=== PATIENT | male | born 1960 | race African-American/Black ===

== ENCOUNTER 2018-04-28 11:15 | Inpatient (IN) | payer MEDICARE, MEDICAID ==
[~2018-04-28] VITALS: Ht 182.9 cm; Wt 291.8 kg
[2018-04-28] MEDS: IPRATROPIUM/ALBUTEROL 0.5-3(2.5)MG/3ML NEB INH SCH ×2 (09:01→23:30)
[~2018-04-28 11:15] MED LIST: ASPI-986 PO
[2018-04-28] MEDS ORDERED: KETOROLAC 30MG/ML VIAL IV ONE (12:15)
[2018-04-28] MEDS ORDERED: DILTIAZEM HCL 5MG/ML 5ML VIAL IV ONE (13:30)
[2018-04-28] MEDS ORDERED: ASPIRIN 325MG TABLET PO ONE (13:30)
[2018-04-28] MEDS ORDERED: SODIUM CHLORIDE 0.9% 500 ML IV ONE (13:30)
[2018-04-28] MEDS ORDERED: DILTIAZEM HCL 125 MG in DEXT 5% WATER 100 ML IV ONE ×2 (13:30→14:00)
[2018-04-28 14:03] LABS: HEMATOCRIT. 42.2 % (42.0-52.0); HEMOGLOBIN. 13.7 g/dL (14.0-18.0); MEAN CORPUSCULAR VOLUME 92.3 fL (80.0-94.0); MEAN PLATELET VOLUME 10.7 fl (7.4-10.4); PLATELET 156 x1000/uL (130-400); RED BLOOD CELL COUNT 4.57 mill/uL (4.7-6.1); RED CELL DISTRIBUTION WIDTH 17.5 % (11.6-14.6)
[2018-04-28 14:06] LABS: CHLORIDE 102 mEq/L (98-107)
[2018-04-28 14:29] LABS: NUCLEATED RED BLOOD CELLS 1 /100 WBC
[2018-04-28 14:30] LABS: PLATELET ESTIMATE NORMAL
[2018-04-28] MEDS ORDERED: METOPROLOL TARTRATE 5MG/5ML VIAL IV SCH (14:45)
[2018-04-28] MEDS ORDERED: DILTIAZEM HCL 5MG/ML 5ML VIAL IV NR (16:19)
[2018-04-28 17:05] LABS: BG BASE EXCESS -4.8 mmol/L (-2.0-2.0); BG BILEVEL POS AIRWAY PRESSURE 15/5; BG DEOXYHEMOGLOBIN 3.9 % (0.0-5.0); BG HCO3 ACT 19.1 mmol/L (22.0-26.0); BG METHEMOGLOBIN 0.3 % (0.0-1.5); BG OXYHEMOGLOBIN 94.8 % (94.0-97.0); BG PH 7.394 (7.350-7.450); BG PO2 88.7 mmHg (75.0-100.0); BG SAMPLE SITE RIGHT RADIAL; BG TOTAL HEMOGLOBIN 13.4 g/dL (12.0-18.0); BG VENT MODE MASK - BIPAP; BG VENT RATE 14 set
[2018-04-28] MEDS ORDERED: PIPERACILLIN/TAZ 2.25G PREMIX 50 ML IV NR (17:31)
[2018-04-28] MEDS ORDERED: HYDROCODONE/ACETAMINOPHEN 5/325MG TABLET PO ONE (17:45)
[2018-04-28] MEDS ORDERED: FENTANYL CITRATE/PF 50MCG/ML 2ML VIAL IV ONE (17:45)
[2018-04-28 18:01] LABS: D-DIMER 10.67 mg/L FEU (<0.50); PROTHROMBIN TIME 20.3 sec (9.1-11.1)
[2018-04-28] MEDS ORDERED: GUAIFENESIN 200MG/10ML SUGAR FREE UDC PO PRN (19:00)
[2018-04-28] MEDS ORDERED: IPRATROPIUM/ALBUTEROL 0.5-3(2.5)MG/3ML NEB INH PRN (19:00)
[2018-04-28] MEDS ORDERED: ACETAMINOPHEN 650MG SUPP PR PRN (19:00)
[2018-04-28] MEDS ORDERED: MAGNESIUM/ALUMINUM HYDROXIDE/SIMETHICONE 30ML UDC PO PRN (19:00)
[2018-04-28] MEDS ORDERED: CLONIDINE 0.1MG TABLET PO PRN (19:00)
[2018-04-28] MEDS ORDERED: NA PHOS,M-B/NA PHOS,DI-BA ENEMA 118ML PR PRN (19:00)
[2018-04-28] MEDS ORDERED: ACETAMINOPHEN 325MG TABLET PO PRN (19:00)
[2018-04-28] MEDS ORDERED: DIPHENHYDRAMINE 50MG/ML VIAL IV PRN (19:00)
[2018-04-28] MEDS: HYDROCODONE/ACETAMINOPHEN 5/325MG TABLET PO PRN (22:35)
[2018-04-28] MEDS: LORAZEPAM 0.5MG TABLET PO PRN (22:35)
[2018-04-29] VITALS (9 sets, daily range): BP systolic 84–143; BP diastolic 57–87
[2018-04-29 01:37] LABS: CREATINE KINASE MB FRACTION 21.4 ng/mL (0.5-3.6)
[2018-04-29] MEDS ORDERED: VANCOMYCIN 2,000 MG in DEXT 5% WATER 500 ML IV NR (02:30)
[2018-04-29] MEDS: DILTIAZEM HCL 60MG TABLET PO SCH ×3 (06:00→22:43)
[2018-04-29] MEDS ORDERED: DIGOXIN 500MCG/2ML AMP IV NR (06:00)
[2018-04-29] MEDS ORDERED: PIPERACILLIN/TAZ 2.25G PREMIX 50 ML IV SCH (08:00)
[2018-04-29 08:42] LABS: BG BASE EXCESS -5.4 mmol/L (-2.0-2.0); BG BILEVEL POS AIRWAY PRESSURE 15/5; BG DEOXYHEMOGLOBIN 1.1 % (0.0-5.0); BG FRACTION INSPIRED OXYGEN 30; BG HCO3 ACT 19.1 mmol/L (22.0-26.0); BG METHEMOGLOBIN 0.2 % (0.0-1.5); BG OXYGEN SATURATION 98.9 % (92.0-98.5); BG OXYHEMOGLOBIN 97.7 % (94.0-97.0); BG PCO2 33.8 mmHg (35.0-45.0); BG PH 7.369 (7.350-7.450); BG SAMPLE SITE RIGHT BRACHIAL; BG TOTAL HEMOGLOBIN 12.8 g/dL (12.0-18.0); BG VENT MODE MASK - BIPAP; BG VENT RATE 14 set
[2018-04-29] MEDS: IPRATROPIUM/ALBUTEROL 0.5-3(2.5)MG/3ML NEB INH SCH ×4 (09:01→20:38)
[2018-04-29 10:15] LABS: CLARITY URINE CLOUDY (CLEAR); COLOR URINE DARK YELLOW (YELLOW); KETONES URINE TRACE (NEGATIVE); LEUKOCYTE ESTERASE URINE 2+ (NEGATIVE); NITRITE URINE POSITIVE (NEGATIVE); OCCULT BLOOD URINE 1+ (NEGATIVE); PROTEIN URINE 3+ (NEGATIVE); SPECIFIC GRAVITY URINE 1.019 (1.005-1.030)
[2018-04-29 10:31] LABS: *AMPHETAMINES SCREEN URINE NEGATIVE (NEGATIVE); *BARBITURATES SCREEN URINE NEGATIVE (NEGATIVE); *BENZODIAZEPINES SCREEN URINE NEGATIVE (NEGATIVE); *COCAINE SCREEN URINE NEGATIVE (NEGATIVE); METHADONE URINE SCREEN NEGATIVE (NEGATIVE); OPIATES URINE SCREEN NEGATIVE (NEGATIVE)
[2018-04-29 10:32] LABS: CANNABINOID URINE SCREEN NEGATIVE (NEGATIVE); PHENCYCLIDINE URINE SCREEN NEGATIVE (NEGATIVE)
[2018-04-29] MEDS ORDERED: DILTIAZEM HCL 125 MG in DEXT 5% WATER 100 ML IV PRN (10:45)
[2018-04-29] MEDS: ASPIRIN 81MG EC TABLET PO SCH (11:27)
[2018-04-29] MEDS: PIPERACILLIN/TAZ 3.375G PREMIX 50 ML IV SCH ×3 (11:27→20:12)
[2018-04-29] MEDS: PANTOPRAZOLE SODIUM 40 MG/VIAL IV SCH (11:27)
[2018-04-29] MEDS: FUROSEMIDE 40MG/4ML VIAL IVP SCH (11:29)
[2018-04-29] MEDS ORDERED: LIDOCAINE HCL 1% 20ML VIAL (Pyxis) INJ ONE (12:48)
[2018-04-29] MEDS: ENOXAPARIN 150MG/ML SYR SUBCUT SCH (13:16)
[2018-04-29] MEDS: DEXT 5%/0.45% NACL 1000ML 1,000 ML IV SCH (19:15)
[2018-04-29 20:33] LABS: HEMATOCRIT. 36.5 % (42.0-52.0); HEMOGLOBIN. 11.9 g/dL (14.0-18.0); MEAN CORPUSCULAR HEMOGLOBIN 29.9 pg (28.0-32.0); MEAN CORPUSCULAR VOLUME 91.7 fL (80.0-94.0); MEAN PLATELET VOLUME 9.7 fl (7.4-10.4); PLATELET 102 x1000/uL (130-400); RED BLOOD CELL COUNT 3.98 mill/uL (4.7-6.1); RED CELL DISTRIBUTION WIDTH 17.4 % (11.6-14.6)
[2018-04-29 20:40] LABS: INR 1.8
[2018-04-29 20:48] LABS: CHLORIDE 104 mEq/L (98-107)
[2018-04-29 20:56] LABS: LDL CHOLESTEROL 38 mg/dL (5-100)
[2018-04-29 20:57] LABS: CREATINE KINASE 126 IU/L (39-308); CREATINE KINASE MB FRACTION 16.7 ng/mL (0.5-3.6); HDL CHOLESTEROL 6 mg/dL (40-59); T4 FREE 0.73 ng/dL (0.76-1.46)
[2018-04-29 21:16] LABS: HEPATITIS B SURFACE ANTIGEN NEGATIVE
[2018-04-29 21:20] LABS: PLATELET ESTIMATE DECREASED
[2018-04-29 21:45] LABS: HEPATITIS A AB IGM NEGATIVE (NEGATIVE)
[2018-04-29] MEDS ORDERED: VANCOMYCIN 2,000 MG in DEXT 5% WATER 500 ML IV SCH (22:00)
[2018-04-30] VITALS (10 sets, daily range): BP systolic 90–123; BP diastolic 38–78
[2018-04-30] MEDS: DEXT 5%/0.45% NACL 1000ML 1,000 ML IV SCH (00:11)
[2018-04-30] MEDS: IPRATROPIUM/ALBUTEROL 0.5-3(2.5)MG/3ML NEB INH SCH ×6 (00:30→20:48)
[2018-04-30] MEDS: ENOXAPARIN 150MG/ML SYR SUBCUT SCH ×2 (00:36→12:48)
[2018-04-30] MEDS: PIPERACILLIN/TAZ 3.375G PREMIX 50 ML IV SCH ×3 (05:28→14:31)
[2018-04-30] MEDS: DILTIAZEM HCL 60MG TABLET PO SCH ×3 (05:29→22:50)
[2018-04-30 07:12] LABS: INR 1.7; PROTHROMBIN TIME 17.4 sec (9.1-11.1)
[2018-04-30 07:22] LABS: BASOPHILS % 0.1 % (0.0-2.0); EOSINOPHILS % 0.3 % (0.0-5.0); HEMATOCRIT. 35.2 % (42.0-52.0); HEMOGLOBIN. 11.5 g/dL (14.0-18.0); LYMPHOCYTES % 12.4 % (20.0-50.0); MEAN CORPUSCULAR HEMOGLOBIN 29.9 pg (28.0-32.0); MEAN CORPUSCULAR VOLUME 91.6 fL (80.0-94.0); MEAN PLATELET VOLUME 9.8 fl (7.4-10.4); MONOCYTES % 8.6 % (2.0-8.0); NEUTROPHILS % 78.6 % (40.0-76.0); PLATELET 91 x1000/uL (130-400); RED BLOOD CELL COUNT 3.84 mill/uL (4.7-6.1); RED CELL DISTRIBUTION WIDTH 17.1 % (11.6-14.6)
[2018-04-30] MEDS: FUROSEMIDE 40MG/4ML VIAL IVP SCH (08:35)
[2018-04-30] MEDS: ASPIRIN 81MG EC TABLET PO SCH (08:35)
[2018-04-30] MEDS: PANTOPRAZOLE SODIUM 40 MG/VIAL IV SCH (08:35)
[2018-04-30 09:29] LABS: BG BASE EXCESS -4.8 mmol/L (-2.0-2.0); BG CARBOXYHEMOGLOBIN 0.8 % (0.5-1.5); BG FRACTION INSPIRED OXYGEN 32; BG HCO3 ACT 18.8 mmol/L (22.0-26.0); BG METHEMOGLOBIN 0.1 % (0.0-1.5); BG OXYHEMOGLOBIN 98.1 % (94.0-97.0); BG PCO2 30.5 mmHg (35.0-45.0); BG PH 7.408 (7.350-7.450); BG PO2 148.3 mmHg (75.0-100.0); BG SAMPLE SITE LEFT BRACHIAL; BG TOTAL HEMOGLOBIN 12.3 g/dL (12.0-18.0); BG VENT MODE NASAL CANNULA
[2018-04-30] MEDS ORDERED: ALBUMIN HUMAN 25GM/100ML (25%) IV NR (14:15)
[2018-04-30] MEDS: HYDROCODONE/ACETAMINOPHEN 5/325MG TABLET PO PRN (14:31)
[2018-04-30] MEDS: NYSTATIN POWDER 15GM TOP SCH ×2 (16:18→18:01)
[2018-04-30] MEDS ORDERED: CEFTRIAXONE 1 G PREMIX 50 ML IV SCH (17:00)
[2018-04-30] MEDS: METRONIDAZOLE 500MG TABLET PO SCH ×2 (18:00→22:46)
[2018-04-30] MEDS: CEFTRIAXONE 1 G PREMIX 50 ML IV SCH (22:46)
[2018-05-01] VITALS (9 sets, daily range): BP systolic 104–147; BP diastolic 51–90
[2018-05-01] MEDS: ENOXAPARIN 150MG/ML SYR SUBCUT SCH ×2 (00:27→11:42)
[2018-05-01] MEDS: IPRATROPIUM/ALBUTEROL 0.5-3(2.5)MG/3ML NEB INH SCH ×6 (00:47→20:31)
[2018-05-01] MEDS: DILTIAZEM HCL 60MG TABLET PO SCH ×3 (06:35→23:13)
[2018-05-01] MEDS: DOCUSATE SODIUM 100MG CAPSULE PO PRN ×2 (06:36→23:12)
[2018-05-01] MEDS: LORAZEPAM 0.5MG TABLET PO PRN (06:37)
[2018-05-01 07:16] LABS: BASOPHILS % 0.1 % (0.0-2.0); EOSINOPHILS % 0.7 % (0.0-5.0); HEMATOCRIT. 35.6 % (42.0-52.0); HEMOGLOBIN. 11.8 g/dL (14.0-18.0); LYMPHOCYTES % 16.6 % (20.0-50.0); MEAN CORPUSCULAR HEMOGLOBIN 29.9 pg (28.0-32.0); MEAN CORPUSCULAR VOLUME 90.3 fL (80.0-94.0); MEAN PLATELET VOLUME 10.4 fl (7.4-10.4); MONOCYTES % 13.3 % (2.0-8.0); NEUTROPHILS % 69.3 % (40.0-76.0); PLATELET 93 x1000/uL (130-400); RED BLOOD CELL COUNT 3.95 mill/uL (4.7-6.1); RED CELL DISTRIBUTION WIDTH 16.9 % (11.6-14.6)
[2018-05-01 08:48] LABS: D-DIMER 6.1 mg/L FEU (<0.50)
[2018-05-01] MEDS: PANTOPRAZOLE SODIUM 40 MG/VIAL IV SCH (08:55)
[2018-05-01] MEDS: ASPIRIN 81MG EC TABLET PO SCH (08:55)
[2018-05-01] MEDS: METRONIDAZOLE 500MG TABLET PO SCH ×2 (08:55→23:12)
[2018-05-01] MEDS: FUROSEMIDE 40MG/4ML VIAL IVP SCH (08:55)
[2018-05-01] MEDS: NYSTATIN POWDER 15GM TOP SCH ×3 (08:56→17:11)
[2018-05-01] MEDS: HYDROCODONE/ACETAMINOPHEN 5/325MG TABLET PO PRN ×2 (11:42→18:49)
[2018-05-01 16:53] LABS: INR 1.6
[2018-05-01] MEDS: CEFTRIAXONE 1 G PREMIX 50 ML IV SCH (23:12)
[2018-05-02] VITALS (14 sets, daily range): BP systolic 107–166; BP diastolic 60–92
[2018-05-02] MEDS: ENOXAPARIN 150MG/ML SYR SUBCUT SCH ×2 (00:10→11:26)
[2018-05-02] MEDS: IPRATROPIUM/ALBUTEROL 0.5-3(2.5)MG/3ML NEB INH SCH ×6 (00:39→20:57)
[2018-05-02] MEDS: DILTIAZEM HCL 60MG TABLET PO SCH (07:19)
[2018-05-02] MEDS: METRONIDAZOLE 500MG TABLET PO SCH ×2 (08:52→22:57)
[2018-05-02] MEDS: PANTOPRAZOLE SODIUM 40 MG/VIAL IV SCH (08:53)
[2018-05-02] MEDS: NYSTATIN POWDER 15GM TOP SCH ×3 (08:53→17:09)
[2018-05-02] MEDS: FUROSEMIDE 40MG/4ML VIAL IVP SCH (08:53)
[2018-05-02 09:35] LABS: HEMOGLOBIN. 11.8 g/dL (14.0-18.0); MEAN CORPUSCULAR HEMOGLOBIN 29.7 pg (28.0-32.0); MEAN CORPUSCULAR VOLUME 90.6 fL (80.0-94.0); MEAN PLATELET VOLUME 10.6 fl (7.4-10.4); PLATELET 89 x1000/uL (130-400); RED BLOOD CELL COUNT 3.97 mill/uL (4.7-6.1); RED CELL DISTRIBUTION WIDTH 16.9 % (11.6-14.6)
[2018-05-02 09:43] LABS: CHLORIDE 101 mEq/L (98-107)
[2018-05-02 10:02] LABS: PHOSPHORUS 4.5 mg/dL (2.5-4.9)
[2018-05-02] MEDS: DILTIAZEM HCL 90MG TABLET PO SCH ×2 (12:19→17:09)
[2018-05-02] MEDS: ONDANSETRON HCL 4MG/2ML INJ IV PRN (16:08)
[2018-05-02 16:47] LABS: NUCLEATED RED BLOOD CELLS 7 /100 WBC; PLATELET ESTIMATE DECREASED
[2018-05-02] MEDS: DOCUSATE SODIUM 100MG CAPSULE PO PRN (17:09)
[2018-05-02] MEDS: CEFTRIAXONE 1 G PREMIX 50 ML IV SCH (22:58)
[2018-05-03] VITALS (11 sets, daily range): BP systolic 123–159; BP diastolic 58–94
[2018-05-03] MEDS: DILTIAZEM HCL 90MG TABLET PO SCH ×6 (00:33→23:56)
[2018-05-03] MEDS: ENOXAPARIN 150MG/ML SYR SUBCUT SCH ×2 (00:40→11:21)
[2018-05-03] MEDS: IPRATROPIUM/ALBUTEROL 0.5-3(2.5)MG/3ML NEB INH SCH ×7 (00:47→21:03)
[2018-05-03] MEDS: PANTOPRAZOLE SODIUM 40 MG/VIAL IV SCH ×2 (08:32→18:28)
[2018-05-03] MEDS: METRONIDAZOLE 500MG TABLET PO SCH ×2 (08:32→20:41)
[2018-05-03] MEDS: NYSTATIN POWDER 15GM TOP SCH ×3 (08:32→18:28)
[2018-05-03 09:12] LABS: HEMATOCRIT. 37.1 % (42.0-52.0); MEAN CORPUSCULAR HEMOGLOBIN 29.5 pg (28.0-32.0); MEAN CORPUSCULAR VOLUME 91.3 fL (80.0-94.0); MEAN PLATELET VOLUME 10.4 fl (7.4-10.4); PLATELET 78 x1000/uL (130-400); RED BLOOD CELL COUNT 4.06 mill/uL (4.7-6.1); RED CELL DISTRIBUTION WIDTH 17.2 % (11.6-14.6)
[2018-05-03] MEDS ORDERED: SORBITOL 70% SOLN 30ML PO PRN (11:00)
[2018-05-03] MEDS ORDERED: BISACODYL 10MG SUPP PR PRN (11:00)
[2018-05-03] MEDS ORDERED: LACTULOSE 20G/30ML UDC PO PRN (11:00)
[2018-05-03] MEDS: DOCUSATE SODIUM 250MG CAPSULE PO SCH (11:10)
[2018-05-03] MEDS: ONDANSETRON HCL 4MG/2ML INJ IV PRN (11:21)
[2018-05-03 13:14] LABS: HEMOGLOBIN. 12.2 g/dL (14.0-18.0); MEAN CORPUSCULAR HEMOGLOBIN 29.8 pg (28.0-32.0); MEAN CORPUSCULAR VOLUME 90.7 fL (80.0-94.0); MEAN PLATELET VOLUME 10.1 fl (7.4-10.4); PLATELET 83 x1000/uL (130-400); RED BLOOD CELL COUNT 4.08 mill/uL (4.7-6.1); RED CELL DISTRIBUTION WIDTH 17.1 % (11.6-14.6)
[2018-05-03 13:45] LABS: NUCLEATED RED BLOOD CELLS 4 /100 WBC
[2018-05-03 13:46] LABS: PLATELET ESTIMATE DECREASED
[2018-05-03 14:21] LABS: NUCLEATED RED BLOOD CELLS 3 /100 WBC
[2018-05-03 14:22] LABS: PLATELET ESTIMATE DECREASED
[2018-05-03] MEDS: SUCRALFATE 1 G/10 ML UDC PO SCH ×2 (18:27→23:56)
[2018-05-03] MEDS: CEFTRIAXONE 1 G PREMIX 50 ML IV SCH (20:39)
[2018-05-04] VITALS (11 sets, daily range): BP systolic 120–146; BP diastolic 52–99
[2018-05-04 00:07] LABS: HEMATOCRIT 35.9 % (42.0-52.0); HEMOGLOBIN 11.9 g/dL (14.0-18.0)
[2018-05-04] MEDS: IPRATROPIUM/ALBUTEROL 0.5-3(2.5)MG/3ML NEB INH SCH ×6 (00:34→21:23)
[2018-05-04] MEDS: SUCRALFATE 1 G/10 ML UDC PO SCH ×4 (05:40→22:38)
[2018-05-04] MEDS: DILTIAZEM HCL 90MG TABLET PO SCH ×4 (05:43→22:38)
[2018-05-04 06:08] LABS: HEMATOCRIT. 37.9 % (42.0-52.0); HEMOGLOBIN. 12.3 g/dL (14.0-18.0); MEAN CORPUSCULAR HEMOGLOBIN 29.8 pg (28.0-32.0); MEAN CORPUSCULAR VOLUME 91.5 fL (80.0-94.0); MEAN PLATELET VOLUME 10.4 fl (7.4-10.4); PLATELET 75 x1000/uL (130-400); RED BLOOD CELL COUNT 4.14 mill/uL (4.7-6.1); RED CELL DISTRIBUTION WIDTH 17.1 % (11.6-14.6)
[2018-05-04 06:14] LABS: INR 1.5; PARTIAL THROMBOPLASTIN TIME 44.7 sec (23.4-31.0); PROTHROMBIN TIME 14.5 sec (9.1-11.1)
[2018-05-04 06:37] LABS: PHOSPHORUS 5.7 mg/dL (2.5-4.9)
[2018-05-04] MEDS: NYSTATIN POWDER 15GM TOP SCH ×3 (08:38→16:01)
[2018-05-04] MEDS: PANTOPRAZOLE SODIUM 40 MG/VIAL IV SCH ×2 (08:38→16:01)
[2018-05-04] MEDS: DOCUSATE SODIUM 250MG CAPSULE PO SCH (08:38)
[2018-05-04] MEDS: METRONIDAZOLE 500MG TABLET PO SCH ×2 (08:38→22:37)
[2018-05-04 12:47] LABS: NUCLEATED RED BLOOD CELLS 3 /100 WBC; PLATELET ESTIMATE DECREASED
[2018-05-04 13:10] LABS: A/G RATIO 0.9 (0.7-1.7); ALBUMIN 2.9 g/dL (2.9-4.4); ALPHA-1-GLOBULIN 0.3 g/dL (0.0-0.4); ALPHA-2-GLOBULIN 0.5 g/dL (0.4-1.0); BETA GLOBULIN 0.9 g/dL (0.7-1.3); GAMMA GLOBULINS 1.5 g/dL (0.4-1.8); GLOBULIN TOTAL 3.2 g/dL (2.2-3.9); M-SPIKE Not Observed g/dL (Not Observed); TOTAL PROTEIN SERUM 6.1 g/dL (6.0-8.5)
[2018-05-04 15:29] LABS: BG BASE EXCESS -6.6 mmol/L (-2.0-2.0); BG BILEVEL POS AIRWAY PRESSURE 15/5; BG CARBOXYHEMOGLOBIN 1.1 % (0.5-1.5); BG DEOXYHEMOGLOBIN 1.5 % (0.0-5.0); BG FRACTION INSPIRED OXYGEN 30; BG HCO3 ACT 18.4 mmol/L (22.0-26.0); BG METHEMOGLOBIN 0.4 % (0.0-1.5); BG OXYGEN SATURATION 98.5 % (92.0-98.5); BG PCO2 35.2 mmHg (35.0-45.0); BG PH 7.337 (7.350-7.450); BG PO2 131.3 mmHg (75.0-100.0); BG SAMPLE SITE RIGHT RADIAL; BG TOTAL HEMOGLOBIN 12.7 g/dL (12.0-18.0); BG VENT MODE BNCPAP; BG VENT RATE 14 set
[2018-05-04 16:39] LABS: HEMATOCRIT 37.5 % (42.0-52.0); HEMOGLOBIN 12.3 g/dL (14.0-18.0)
[2018-05-04] MEDS: CEFTRIAXONE 1 G PREMIX 50 ML IV SCH (22:37)
[2018-05-05] VITALS (11 sets, daily range): BP systolic 112–150; BP diastolic 72–88
[2018-05-05] MEDS: IPRATROPIUM/ALBUTEROL 0.5-3(2.5)MG/3ML NEB INH SCH ×6 (00:40→20:28)
[2018-05-05 04:11] LABS: COMPLEMENT C3 82 mg/dL (82-167)
[2018-05-05] MEDS: SUCRALFATE 1 G/10 ML UDC PO SCH ×3 (07:09→17:12)
[2018-05-05] MEDS: DILTIAZEM HCL 90MG TABLET PO SCH ×3 (07:10→17:12)
[2018-05-05] MEDS ORDERED: LIDOCAINE HCL 1% 20ML VIAL (Pyxis) INJ ONE (07:21)
[2018-05-05 07:26] LABS: CHLORIDE 101 mEq/L (98-107); HEMATOCRIT. 37.3 % (42.0-52.0); HEMOGLOBIN. 12.1 g/dL (14.0-18.0); MEAN CORPUSCULAR HEMOGLOBIN 29.6 pg (28.0-32.0); MEAN CORPUSCULAR VOLUME 90.9 fL (80.0-94.0); MEAN PLATELET VOLUME 9.8 fl (7.4-10.4); PLATELET 68 x1000/uL (130-400); RED CELL DISTRIBUTION WIDTH 17.1 % (11.6-14.6)
[2018-05-05 07:44] LABS: PHOSPHORUS 5.3 mg/dL (2.5-4.9)
[2018-05-05] MEDS: DOCUSATE SODIUM 250MG CAPSULE PO SCH (08:33)
[2018-05-05] MEDS: PANTOPRAZOLE SODIUM 40 MG/VIAL IV SCH ×2 (08:33→17:11)
[2018-05-05] MEDS: METRONIDAZOLE 500MG TABLET PO SCH ×2 (08:33→21:19)
[2018-05-05] MEDS: DOCUSATE SODIUM 100MG CAPSULE PO PRN (08:33)
[2018-05-05] MEDS: NYSTATIN POWDER 15GM TOP SCH ×3 (08:34→17:12)
[2018-05-05 15:26] LABS: NUCLEATED RED BLOOD CELLS 2 /100 WBC
[2018-05-05 15:27] LABS: PLATELET ESTIMATE DECREASED
[2018-05-05] MEDS: CEFTRIAXONE 1 G PREMIX 50 ML IV SCH (21:20)
[2018-05-06 00:08] VITALS: BP 158/85
== END 2018-05-05 23:40 | DRG 871 ==
LOC: ER 11:15 → EDBEDREQ 16:04 → EDBEDREQTM 16:04 → ENRESERV 04-29 02:18 → 3WST 04-29 05:26
PROVIDERS: ADMIT Internal Medicine; ATTEND Internal Medicine
PROC: 5A09357 Assistance with Respiratory Ventilation, Less than 24 Consecutive Hours, Continuous Positive Airway Pressure (ICD-10-PCS; 2018-04-28)
PROC: 05HY33Z Insertion of Infusion Device into Upper Vein, Percutaneous Approach (ICD-10-PCS; 2018-04-29)
PROC: B54MZZA Ultrasonography of Right Upper Extremity Veins, Guidance (ICD-10-PCS; 2018-04-29)
PROC: 5A09357 Assistance with Respiratory Ventilation, Less than 24 Consecutive Hours, Continuous Positive Airway Pressure (ICD-10-PCS; 2018-04-29)
PROC: 5A09357 Assistance with Respiratory Ventilation, Less than 24 Consecutive Hours, Continuous Positive Airway Pressure (ICD-10-PCS; 2018-04-30)
PROC: 5A09357 Assistance with Respiratory Ventilation, Less than 24 Consecutive Hours, Continuous Positive Airway Pressure (ICD-10-PCS; 2018-05-01)
PROC: 5A09357 Assistance with Respiratory Ventilation, Less than 24 Consecutive Hours, Continuous Positive Airway Pressure (ICD-10-PCS; 2018-05-02)
PROC: 5A09357 Assistance with Respiratory Ventilation, Less than 24 Consecutive Hours, Continuous Positive Airway Pressure (ICD-10-PCS; 2018-05-03)
PROC: 5A1D70Z Performance of Urinary Filtration, Intermittent, Less than 6 Hours Per Day (ICD-10-PCS; 2018-05-03)
PROC: 5A09357 Assistance with Respiratory Ventilation, Less than 24 Consecutive Hours, Continuous Positive Airway Pressure (ICD-10-PCS; 2018-05-04)
PROC: 02HV33Z Insertion of Infusion Device into Superior Vena Cava, Percutaneous Approach (ICD-10-PCS; principal; 2018-05-05)
PROC: B548ZZA Ultrasonography of Superior Vena Cava, Guidance (ICD-10-PCS; 2018-05-05)
PROC: 5A09357 Assistance with Respiratory Ventilation, Less than 24 Consecutive Hours, Continuous Positive Airway Pressure (ICD-10-PCS; 2018-05-05)
PROC: 5A1D70Z Performance of Urinary Filtration, Intermittent, Less than 6 Hours Per Day (ICD-10-PCS; 2018-05-05)
DX: A41.9 Sepsis, unspecified organism (principal); J96.01 Acute respiratory failure with hypoxia; E43 Unspecified severe protein-calorie malnutrition; I50.43 Acute on chronic combined systolic (congestive) and diastolic (congestive) heart failure; J96.02 Acute respiratory failure with hypercapnia; N18.6 End stage renal disease; D68.59 Other primary thrombophilia; E87.2 Acidosis; N17.9 Acute kidney failure, unspecified; N39.0 Urinary tract infection, site not specified; E66.2 Morbid (severe) obesity with alveolar hypoventilation; K80.10 Calculus of gallbladder with chronic cholecystitis without obstruction; K92.2 Gastrointestinal hemorrhage, unspecified; I42.9 Cardiomyopathy, unspecified; I13.2 Hypertensive heart and chronic kidney disease with heart failure and with stage 5 chronic kidney disease, or end stage renal disease; Z68.45 Body mass index [BMI] 70 or greater, adult; B35.9 Dermatophytosis, unspecified; D64.9 Anemia, unspecified; D69.6 Thrombocytopenia, unspecified; E87.5 Hyperkalemia; I89.0 Lymphedema, not elsewhere classified; R31.9 Hematuria, unspecified; E11.51 Type 2 diabetes mellitus with diabetic peripheral angiopathy without gangrene; J44.9 Chronic obstructive pulmonary disease, unspecified; I27.20 Pulmonary hypertension, unspecified; E11.22 Type 2 diabetes mellitus with diabetic chronic kidney disease; I48.0 Paroxysmal atrial fibrillation; I87.2 Venous insufficiency (chronic) (peripheral); K59.00 Constipation, unspecified; K76.0 Fatty (change of) liver, not elsewhere classified; M19.90 Unspecified osteoarthritis, unspecified site; Z59.0 Homelessness; Z82.49 Family history of ischemic heart disease and other diseases of the circulatory system; Z86.74 Personal history of sudden cardiac arrest; Z87.820 Personal history of traumatic brain injury; Z99.2 Dependence on renal dialysis
CPT/HCPCS: 36415; 36569; 36600; 71045; 76700; 76770; 76857; 76937; 80048; 80061; 80076; 80202; 80305; 82140; 82248; 82375; 82550; 82553; 82570; 82805; 82962; 83036; 83735; 83880; 83935; 84100; 84155; 84156; 84165; 84300; 84439; 84443; 84484; 85014; 85018; 85379; 85384; 86022; 86160; 86705; 86709; 86803; 87340; 93005; 93306; 93923; 93970; 94640; 94660; 96365; 96375; 97110; 97163; 97530; 99291; A6261; C1725; C1752; C1769; C9113; J0696; J1160; J1650; J1885; J1940; J2405; J2543; J3010; J3370; J3490; J7040; J7060; J7620; P9047; A4315